=== PATIENT | female | born 1965 | race Caucasian/White ===

== ENCOUNTER 2023-12-03 09:59 | Emergency (ER) | payer OTHER ==
[~2023-12-03] VITALS: Ht 170.2 cm; Wt 61.2 kg
[2023-12-03 10:06] VITALS: BP 124/82; PULSE 107; RESP 12
[2023-12-03] MEDS: ONDANSETRON 4MG INJ IVP ONE (10:34)
[2023-12-03 10:38] LABS: BASOPHILS # (AUTO) 0.06 K/uL (0.00-0.20); BASOPHILS % (AUTO) 0.6 % (0.0-5.0); EOSINOPHILS # (AUTO) 0.14 K/uL (0.00-0.70); EOSINOPHILS % (AUTO) 1.3 % (0.0-8.0); HEMATOCRIT 37.7 % (36-48); IMMATURE GRANULOCYTE ABSOLUTE 0.06 K/uL (0-1); LYMPHOCYTES # (AUTO) 4.3 K/uL (1.0-4.8); LYMPHOCYTES % (AUTO) 40.8 % (21.0-51.0); MEAN CORPUSCULAR HEMOGLOBIN 29.2 pg (27.0-33.0); MEAN CORPUSCULAR HGB CONC 32.9 g/dL (32.0-36.0); MEAN CORPUSCULAR VOLUME 88.7 fL (79-99); MONOCYTES # (AUTO) 0.6 K/uL (0.1-1.0); MONOCYTES % (AUTO) 5.5 % (3.0-13.0); NEUTROPHILS # (AUTO) 5.4 K/uL (1.8-7.7); NEUTROPHILS % (AUTO) 51.2 % (40.0-77.0); PLATELET COUNT (AUTO) 223 K/uL (130-400); RED BLOOD CELL COUNT(AUTO) 4.25 MIL/uL (4.00-5.50); RED CELL DISTRIBUTION WIDTH 12.7 % (11.0-15.5); WHITE BLOOD COUNT (AUTO) 10.5 K/uL (4.8-10.8)
[2023-12-03 10:52] LABS: INR 0.95 (0.85-1.15); PROTHROMBIN TIME 11.3 SEC (9.6-11.6)
[2023-12-03 10:53] LABS: PARTIAL THROMBOPLASTIN TIME 21.6 SEC (26.3-35.5)
[2023-12-03 11:37] LABS: CREATININE 0.8 mg/dL (0.5-1.0); POTASSIUM 3.2 mmol/L (3.5-5.1)
[2023-12-03] MEDS: ACETAMINOPHEN 500 MG TABLET PO ONE (11:37)
[2023-12-03] MEDS: TETANUS/DIPHTHERIA TOXOID [ADULT] 0.5 ML VIAL IM ONE (11:41)
[2023-12-03 11:46] LABS: BILIRUBIN,TOTAL 0.4 mg/dL (0.2-1.0); TOTAL PROTEIN, SERUM 7.2 g/dL (6.0-8.3)
[2023-12-03] MEDS: METOCLOPRAMIDE 10 MG/2 ML VIAL IVP ONE (11:48)
[2023-12-03] MEDS: METOCLOPRAMIDE 10 MG/2 ML VIAL ONE (11:49)
[2023-12-03] MEDS: ACETAMINOPHEN 500 MG TABLET ONE (11:49)
[2023-12-03] MEDS: BACITRACIN 1 EACH PACKET TP ONE ×2 (12:01→12:02)
[2023-12-03] MEDS ORDERED: ONDA4TAB10 PO (12:12)
== END 2023-12-03 12:30 | disposition home or self-care (01) ==
LOC: EDH 09:59
DX: S01.01XA Laceration without foreign body of scalp, initial encounter (principal); S16.1XXA Strain of muscle, fascia and tendon at neck level, initial encounter; M19.90 Unspecified osteoarthritis, unspecified site; M79.7 Fibromyalgia; Z79.899 Other long term (current) drug therapy; X58.XXXA Exposure to other specified factors, initial encounter; Y93.89 Activity, other specified; Y92.89 Other specified places as the place of occurrence of the external cause; Y99.8 Other external cause status; D69.6 Thrombocytopenia, unspecified
CPT/HCPCS: 99285; 70450; 96374; 96375; 83735; 84484; 80053; 85025; 85610; 85730; 36415; 90714; 72125; 90471; 12001; 93005; J2405; J2765